=== PATIENT | male | born 1955 | race African-American/Black ===

== ENCOUNTER → 2025-01-26 | Outpatient (CLI) | payer OTHER, SELFPAY ==
--- NOTE | 2025-01-26 16:00 | XR_ITS ---
Examination: CT lung low dose screening, without contrast. 2-D sagittal reconstructions. 2-D coronal reconstructions. 3-D reconstructions. Date and time of exam: January 26, 2025, 1610 hours INDICATIONS: Encounter for screening malignant neoplasm of lung, coughing several months, smoking history 25 years CTDI: vol (mGy): 10.7 DLP: (mGycm): 374 Technique: Multiple 1.25 mm axial sections of the thorax have been obtained. 2-D sagittal and coronal reconstructions have been obtained. 3-D reconstructions have been obtained. Low dose protocols were performed. One or more of the following dose reduction techniques were used; automated exposure control, adjustment of the mA and/or KV according to patient size, use of iterative reconstruction technique. Findings: Thoracic aortic calcification no aneurysmal dilatation Pulmonary artery segments are not enlarged. Moderate coronary artery calcification Mild enlargement left ventricle. 3 mm pulmonary nodule left upper lobe image 71 10 mm pulmonary nodule right lower lobe image 136 Calcified granuloma 8 mm left lower lobe No lobar pneumonia or pulmonary edema Splenic calcifications Absent gallbladder No pancreatic mass Perinephric stranding IMPRESSION: Noncalcified pulmonary nodules as above, with the studies baseline recommend 6-month follow-up CT chest without intravenous contrast
== END | disposition home or self-care (01) ==
PROVIDERS: PCP Student in an Organized Health Care Education/Training Program; Referring Provider Student in an Organized Health Care Education/Training Program; Visit Provider Student in an Organized Health Care Education/Training Program
DX: Z12.2 Encounter for screening for malignant neoplasm of respiratory organs (principal); R91.8 Other nonspecific abnormal finding of lung field
CPT/HCPCS: 71271